=== PATIENT | female | born 1940 | race Caucasian/White ===

== ENCOUNTER 2019-01-31 05:20 | Emergency (ER) | payer OTHER ==
[~2019-01-31] VITALS: Wt 68.9 kg
--- NOTE | 2019-01-31 06:22 | ERD ---
ER Documentation Chief Complaint Chief Complaint bib ra from home for sob, cough, congestion, seen at [facility] 2 days prior HPI 78-year-old female with a history of retention, atrial fibrillation anticoagulated on Coumadin and asthma presents to the ED via rescue ambulance complaining of a 5-day history of worsening shortness of breath, wheezing and nonproductive cough. She was seen in the ED at [facility] 2 days ago treated with nebulized albuterol and corticosteroids with some improvement but worsened last night. Influenza testing is reported as negative. Mild left ear pain but no discharge. No odynophagia or dysphagia. Denies chest pain or palpitations. Denies abdominal pain, nausea or vomiting. No leg pain or swelling. Mild right flank pain since last night. Chronic, intermittent dysuria but no polyuria or hematuria. No fevers or chills. ROS All systems reviewed and are negative except as per history of present illness. Allergies Allergies: Coded Allergies: No Known Allergy (Unverified , 01/31/19) PMhx/Soc History of Surgery: Yes (Thyroid, Bilateral hip, right knee) Anesthesia Reaction: No Hx Neurological Disorder: No Hx Respiratory Disorders: Yes (Asthma) Hx Cardiac Disorders: Yes (Afib) Hx Miscellaneous Medical Probl: Yes (Thyroid lump benign) Hx Alcohol Use: No Hx Substance Use: No Hx Tobacco Use: No Smoking Status: Never smoker FmHx No sudden cardiac or stroke. Physical Exam Vitals Vital Signs Date Temp Pulse Resp B/P (MAP) Pulse Ox O2 O2 Flow FiO2 Time Delivery Rate 01/31/19 98.4 110 16 102/49 96 Nasal 09:22 (66) Cannula 01/31/19 Nasal 2 08:00 Cannula 01/31/19 89 20 94 Nasal 3.0 07:21 Cannula 01/31/19 Nasal 2.0 06:33 Cannula 01/31/19 98.6 96 18 141/76 98 Nasal 2.0 06:24 (97) Cannula 01/31/19 98.1 71 25 159/89 96 05:43 (112) Physical Exam Const: Distress. Head: Atraumatic Eyes: Normal Conjunctiva ENT: Normal External Ears, Nose and Mouth. Left ear: Tympanic membrane is curiel but canal is inflamed with discharge. Neck: Full range of motion. No stridor. No JVD. No meningismus. Resp: Breath sounds markedly diminished bilaterally with expiratory wheezing and prolonged expiratory phase. Scattered rhonchi but no rales. Cardio: Tachycardic. Regular rate and rhythm, no murmurs Abd: Soft, non tender, non distended. No rebound or guarding. Normal bowel sounds Skin: No petechiae or rashes Back: No midline or flank tenderness Ext: No cyanosis, or edema. No calf swelling or tenderness. Pulses 4+ in all extremities. Neur: Awake and alert. No focal deficit. Psych: Normal Mood and Affect Result Diagram: 01/31/19 0708 01/31/19 0916 Results 24 hrs Laboratory Tests Test 01/31/19 07:08 01/31/19 08:41 01/31/19 09:16 White Blood Count 15.8 10^3/ul Red Blood Count 3.91 10^6/ul Hemoglobin 11.6 g/dl Hematocrit 34.8 % Mean Corpuscular Volume 89.0 fl Mean Corpuscular Hemoglobin 29.7 pg Mean Corpuscular 33.3 g/dl Hemoglobin Concent Red Cell Distribution Width 13.3 % Platelet Count 296 10^3/UL Mean Platelet Volume 9.3 fl Immature Granulocytes % 0.800 % Neutrophils % 75.8 % Lymphocytes % 9.9 % Monocytes % 13.2 % Eosinophils % 0.0 % Basophils % 0.3 % Nucleated Red Blood Cells % 0.0 /100WBC Immature Granulocytes # 0.120 10^3/ul Neutrophils # 12.0 10^3/ul Lymphocytes # 1.6 10^3/ul Monocytes # 2.1 10^3/ul Eosinophils # 0.0 10^3/ul Basophils # 0.1 10^3/ul Nucleated Red Blood Cells # 0.0 10^3/ul Prothrombin Time 52.3 Sec Prothrombin Time Ratio 4.1 INR International 5.85 Normalized Ratio Troponin I < 0.012 ng/ml Urine Color JAS Urine Clarity CLOUDY Urine pH 6.0 Urine Specific [place] 1.019 Urine Ketones TRACE mg/dL Urine Nitrite POSITIVE mg/dL Urine Bilirubin NEGATIVE mg/dL Urine Urobilinogen NEGATIVE mg/dL Urine Leukocyte Esterase 3+ Amelia/ul Urine Microscopic RBC 119 /HPF Urine Microscopic WBC 38 /HPF Urine Squamous Epithelial Cells FEW /HPF Urine Bacteria FEW /HPF Urine Mucus MANY /HPF Urine Hemoglobin 3+ mg/dL Urine Glucose NEGATIVE mg/dL Urine Total Protein 2+ mg/dl Sodium Level 135 mmol/L Potassium Level 3.9 mmol/L Chloride Level 99 mmol/L Carbon Dioxide Level 24 mmol/L Anion Gap 12 Blood Urea Nitrogen 17 mg/dl Creatinine 0.69 mg/dl Est Glomerular Filtrat mL/min Rate mL/min Glucose Level 194 mg/dl Calcium Level 8.7 mg/dl Current Medications Medications Dose Sig/Tatyana Start Time Status Last (Trade) Ordered Route PRN Stop Time Admin Dose Reason Admin Albuterol 15 mg ONCE STAT 01/31/19 DC 01/31/19 (Proventil INH 06:37 07:19 0.5% (Neb)) 01/31/19 06:41 Ipratropium 1 mg ONCE STAT 01/31/19 DC 01/31/19 [place] INH 06:37 07:19 (Atrovent 01/31/19 06:41 0.02% (Neb)) 125 mg ONCE STAT 01/31/19 DC 01/31/19 Methylprednis IV 06:37 07:24 olone Sodium 01/31/19 06:41 Succinate (Solu-Medrol) Ceftriaxone 50 ml @ ONCE ONCE 01/31/19 Sodium 100 mls/hr IVPB 10:00 01/31/19 10:29 Procedures/MDM DOCUMENTS REVIEWED: ED nurseSha EKG: Time: 07:09. Sinus rhythm. Ventricular rate 95. Normal WI and QRS. No acute ST segment elevation or depression. No ectopy. My Interpretation IMAGING: PROCEDURE: XR Chest. CLINICAL INDICATION: Asthma exacerbation TECHNIQUE: Single frontal view of the chest was obtained. COMPARISON: None available FINDINGS: The cardiomediastinal silhouette is normal size. Pulmonary vasculature is within normal limits. There is atelectasis at the lung bases. There is moderate aortic calcification.. No signs of pleural fluid or pneumothorax are seen. The osseous structures and soft tissues are unremarkable. There is surgical clips in the left thyroid bed region. IMPRESSION: 1. Bibasilar atelectasis. No visualized consolidation or edema. 2. Moderate aortic calcification RPTAT: HBST .Fantasma Kitchen MD, MD Date Time Electronically viewed and signed by .Fantasma Kitchen MD, on 01/31/2019 07:22 .T/ MEDICAL DECISION MAKIN-year-old female with a history of retention, atrial fibrillation anticoagulated on Coumadin and asthma presents to the ED via rescue ambulance complaining of a 5-day history of worsening shortness of breath, wheezing and nonproductive cough. CBC reveals leukocytosis but no anemia. INR is supra therapeutic at 5.8. Chemistry unremarkable for electrolyte abnormalities or renal insufficiency. EKG reveals sinus rhythm without ischemia or dysrhythmia. Chest x-ray negative for infiltrate or effusion. Patient presents with acute asthma exacerbation improved with nebulized beta agonist and intravenous corticosteroids. No radiographic evidence of pneumonia or pneumothorax. Pulmonary embolism is unlikely especially as the patient is already anticoagulated. Urinalysis consistent with urinary tract infection treated with Rocephin pending culture. Patient has right flank pain but no CVA tenderness or other signs of pyelonephritis. Abdominal exam is completely benign without tenderness, rebound, guarding, signs of peritonitis or indication for imaging. Supratherapeutic INR without evidence of bleeding. As this is the patient's second visit for similar symptoms with the last 48 hours she will be admitted for further evaluation and management. Transfer to [facility] via [facility]. Accepting Dr. Gong. CALLS/CONSULTS: Time: 08:43, [facility], Dr. Vick. Case #[id number]. Agrees with plan for transfer. Counseled patient and family regarding diagnosis, diagnostic results and plan for admission. Departure Diagnosis: Primary Impression: Acute dyspnea Additional Impressions: Acute asthma exacerbation Asthma severity: moderate Asthma persistence: unspecified Qualified Codes: J45.901 - Unspecified asthma with (acute) exacerbation Supratherapeutic INR UTI (urinary tract infection) Urinary tract infection type: acute cystitis Hematuria presence: with hematuria Qualified Codes: N30.01 - Acute cystitis with hematuria Left otitis externa Otitis externa type: unspecified type Chronicity: acute Qualified Codes: H60.502 - Unspecified acute noninfective otitis externa, left ear History of atrial fibrillation Condition: Serious (Stable for transfer) ILYA ROGEL MD Jan 31, 2019 06:22
[2019-01-31] MEDS ORDERED: IPRATROPIUM (NEB) 0.5 MG/2.5 ML AMP INH STA (06:37)
[2019-01-31] MEDS ORDERED: ALBUTEROL 0.5% (NEB) 2.5 MG/0.5 ML AMP INH STA (06:37)
[2019-01-31] MEDS ORDERED: METHYLPREDNISOLONE 125 MG INJ IV STA (06:37)
[2019-01-31] MEDS ORDERED: CEFTRIAXONE 1 GM/50 ML (PMX) 50 ML IVPB ONE (10:00)
[2019-01-31 10:27] VITALS: BP 98/76; PULSE 103; RESP 24
== END 2019-01-31 10:27 | disposition short-term general hospital (02) ==
LOC: E/R 05:20
DX: J45.901 Unspecified asthma with (acute) exacerbation (principal); N30.01 Acute cystitis with hematuria; H60.502 Unspecified acute noninfective otitis externa, left ear; R79.1 Abnormal coagulation profile; Z86.79 Personal history of other diseases of the circulatory system
CPT/HCPCS: 71045; 80048; 81001; 84484; 85025; 85610; 87086; 93005; 94644; 96374; 96375; 99285; J0696; J2930